=== PATIENT | female | born 1965 | race Caucasian/White ===

== ENCOUNTER → 2016-10-27 | Outpatient (CLI) | payer OTHER ==
--- NOTE | 2016-10-27 11:02 | RAD ---
DATE: 10/27/16 EXAM: Digital diagnostic bilateral mammograms and right breast ultrasound HISTORY: Palpable abnormality in the right upper outer breast COMPARISON: None available. Patient cannot recall the location of her previous mammograms. This study was interpreted with the benefit of Computerized Aided Detection (CAD). Mammogram: Technique: CC and MLO views of both breasts are obtained. Bilateral diagnostic mammogram Findings: The breast tissue density is [C, heterogeneously dense breast parenchyma ] . This reduces the sensitivity of mammograms. A marker has been placed in the right upper outer breast corresponding to the area of palpable concern. There is an area of asymmetric density beneath the skin marker. No suspicious clustered microcalcifications or architectural distortion seen. Scattered benign-appearing calcifications are seen in both breasts. Ultrasound to follow. Right Breast ultrasound discussion: Targeted sonographic evaluation of the right breast is performed and images are obtained. There is a ill-defined heterogeneously echogenic abnormality measuring 0.8 x 0.7 x 0.5 cm at 1030 - 11:00 position, 6 cm from the nipple. Some shadowing is demonstrated. There is vascularity at the periphery and within this area of abnormality. IMPRESSION: 1. Area of asymmetric density in the right upper outer breast corresponds to the area of palpable concern. 2. An ill-defined area of abnormality is seen on ultrasound at 10.30 - 11:00 position just beneath the area of palpable concern. The findings are suspicious. An ultrasound-guided biopsy is recommended. BI-RADS CATEGORY: 4 SUSPICIOUS ABNORMALITY-BIOPSY SHOULD BE CONSIDERED RECOMMENDED FOLLOW-UP: BIO BIOPSY RECOMMENDED PQRS compliance statement: Patient information was entered into a reminder system with a target due date for the next mammogram. Mammography is a sensitive method for finding small breast cancers, but it does not detect them all and is not a substitute for careful clinical examination. A negative mammogram does not negate a clinically suspicious finding and should not result in delay in biopsying a clinically suspicious abnormality. "Our facility is accredited by the [employer] Mammography [employer]." The results were discussed with the patient and subsequently with Corinna Long, the PA taking care of the patient after completion of the study.
== END | disposition home or self-care (01) ==
LOC: MAMMO 09:34
PROVIDERS: ATTEND Nurse Practitioner Family
DX: N63 Unspecified lump in breast (principal); R92.1 Mammographic calcification found on diagnostic imaging of breast
CPT/HCPCS: 76641; G0204; 77066

== ENCOUNTER → 2021-06-17 | Outpatient (CLI) | payer BC ==
[2021-06-14 15:41] VITALS: BP 127/56
[~2021-06-17] MED LIST: MEDR10TA3 PO; MULT-121 PO
--- NOTE | 2021-06-17 13:20 | EKG ---
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
[2021-06-17 13:39] LABS: BASO % 0 % (0-3); EOS # 0.1 x10^3/uL (0.0-0.7); EOS % 2 % (0-3); HEMATOCRIT 37.7 % (36.0-47.0); HEMOGLOBIN 12.4 g/dL (12.0-15.5); LYMPH # 1.5 x10^3/uL (1.0-4.8); LYMPH % 26 % (24-48); MEAN CORPUSCULAR HEMOGLOBIN 28 pg (25-35); MEAN CORPUSCULAR HGB CONC 33 g/dL (31-37); MEAN CORPUSCULAR VOLUME 86 fL (79-100); MONO # 0.5 x10^3/uL (0.0-1.1); MONO % 9 % (0-9); NEUT # 3.7 x10^3/uL (1.8-7.7); NEUT % 63 % (31-73); PLATELET COUNT 200 x10^3/uL (140-400); RED BLOOD COUNT 4.41 x10^6/uL (3.50-5.40); RED CELL DISTRIBUTION WIDTH 15.8 % (11.5-14.5); WHITE BLOOD COUNT 5.9 x10^3/uL (4.0-11.0)
[2021-06-17 13:44] LABS: BILIRUBIN,URINE NEGATIVE (NEG); CLARITY,URINE CLEAR; COLOR,URINE YELLOW; NITRITE,URINE NEGATIVE (NEG); PROTEIN,URINE NEGATIVE (NEG-TRACE); UROBILINOGEN,URINE 0.2 mg/dL (0.2 mg/dL)
[2021-06-17 13:51] LABS: ALBUMIN/GLOBULIN RATIO 1.4 (1.0-1.7); CALCIUM 8.4 mg/dL (8.5-10.1); CREATININE 0.7 mg/dL (0.6-1.0); GFR 86.2; POTASSIUM 3.9 mmol/L (3.5-5.1); TOTAL BILIRUBIN 0.3 mg/dL (0.2-1.0); TOTAL PROTEIN 6.8 g/dL (6.4-8.2)
[2021-06-17 13:51] LABS: BACTERIA,URINE FEW /HPF (0-FEW); RBC,URINE 0 /HPF (0-2); WBC,URINE OCC /HPF (0-4)
--- NOTE | 2021-06-17 14:46 | RAD ---
AP and Lateral Views of the Chest 06/17/2021 1:41 PM Indication: Reason: PRE-OP HYSTERECTOMY ON 06/22. Instructions: / History: Comparison: None Findings: There is no focal consolidation or infiltrate identified. Heart size is normal. There is no evidence of pneumothorax or pleural effusion. No acute osseous abnormalities are identified Impression: No evidence of acute cardiopulmonary process. Electronically signed by: Roberto Baltazar MD (06/17/2021 2:43 PM) [id number]
== END ==
LOC: MERGE 12:30 → UNMERGE 12:41 → SURGPAT 12:41
PROVIDERS: ATTEND Obstetrics & Gynecology
DX: Z01.818 Encounter for other preprocedural examination (principal)
CPT/HCPCS: 36415; 71046; 80053; 81001; 85025; 93005

== ENCOUNTER 2021-06-22 06:11 | Observation (INO) | payer BC, OTHER ==
[2021-06-17 13:13] VITALS: BP 138/68
[~2021-06-22] VITALS: Ht 161.3 cm; Wt 65.0 kg
[2021-06-22] VITALS (10 sets, daily range): BP systolic 97–138; BP diastolic 55–82
[~2021-06-22 06:11] MED LIST changes: +HYDROmorphone 2 MG/ML VIAL IVP PRN; +IV RINGERS,LACTATED 1000ML 1,000 ML IV SCH; +MORPHINE SULFATE 2 MG/ML INJ. IVP PRN; +PROCHLORPERAZINE 10 MG/2 ML VIAL. IVP PRN; +ceFAZolin SODIUM IV Push 1 GM VIAL. IVP PRN; +fentaNYL PF VIAL 100 MCG/2 ML VIAL IVP PRN
[2021-06-22] MEDS ORDERED: LIDOCAINE 2% PF 5 ML VIAL. ONE (06:46)
[2021-06-22] MEDS ORDERED: PROPOFOL 10 MG/ML (20ML) VIAL. IV ONE (06:46)
[2021-06-22] MEDS ORDERED: DEXAMETHASONE SOD PHOS 4 MG/ML VIAL ONE (06:47)
[2021-06-22] MEDS ORDERED: ROCURONIUM 50 MG/5 ML VIAL. ONE (06:47)
[2021-06-22] MEDS ORDERED: ONDANSETRON PF 4 MG/2 ML VIAL. ONE (06:47)
[2021-06-22] MEDS ORDERED: NEOSTIGMINE METHYLSULFATE 5 MG/5 ML SYRINGE. ONE (06:48)
[2021-06-22] MEDS ORDERED: GLYCOPYRROLATE 1 MG/5 ML VIAL. ONE (06:48)
[2021-06-22] MEDS ORDERED: BUPIVACAINE-EPI 0.25%-1:200000 MPF 30 ML VIAL. ONE (07:10)
[2021-06-22] MEDS ORDERED: ESTROGENS, CONJ VAGINAL CREAM 30GM TUBE. ONE (07:10)
[2021-06-22] MEDS ORDERED: INDIGOTINDISULFONATE SODIUM 40 MG/5 ML AMPUL. ONE (07:11)
[2021-06-22] MEDS ORDERED: MIDAZOLAM HCL/PF 2 MG/2 ML VIAL. ONE (07:12)
[2021-06-22] MEDS ORDERED: fentaNYL PF VIAL 100 MCG/2 ML VIAL ONE ×2 (07:12→09:58)
[2021-06-22] MEDS ORDERED: KETAMINE HCL IN NACL, ISO-OSM 50 MG/5 ML SYRINGE ONE (07:38)
[2021-06-22] MEDS ORDERED: KETOROLAC 30 MG/ML VIAL. ONE ×2 (08:17→08:36)
[2021-06-22] MEDS ORDERED: ePHEDrine PF IN SALINE 50 MG/10 ML SYRINGE. IV ONE (08:23)
[2021-06-22] MEDS ORDERED: SEVOFLURANE 61 TO 120 MINUTES. IH ONE (09:14)
--- NOTE | 2021-06-22 09:36 | PDOC ---
BRIEF OPERATIVE NOTE Date: Jun 22, 2021 Pre-Op Diagnosis complex endometrial hyperplasia and enlarged uterus Post-Op Diagnosis same Procedure Performed LAVH/bilateral salpingectomy Surgeon Dr. Gladys Huggins Clinic Office Manager FAY Pineda Anesthesiologist Dr. Cohen Anesthesia Type: General Blood Loss 100cc IV Fluid 1L fluid Urine Output 200cc clear via saucedo Specimens Obtained cervix, uterus and bilateral tubes Findings enlarged uterus, normal bilateral tubes and ovaries; left sided adhesive disease, mild endometriosis Complications none Operative Note [id number] GLADYS HUGGINS MD Jun 22, 2021 09:36
[2021-06-22] MEDS ORDERED: ZOLPIDEM 5 MG TABLET. PO PRN (09:45)
[2021-06-22] MEDS ORDERED: diphenhydrAMINE HCL 25 MG CAPSULE PO PRN (09:45)
[2021-06-22] MEDS ORDERED: NALOXONE 0.4 MG/ML VIAL. IV PRN (09:45)
[2021-06-22] MEDS ORDERED: SIMETHICONE 80 MG TAB.CHEW PO PRN (09:45)
[2021-06-22] MEDS ORDERED: MAG HYDROX/ALUMINUM HYD/SIMETH 30 ML ORAL.SUSP PO PRN (09:45)
[2021-06-22] MEDS ORDERED: HYDROcodone/APAP 5/325MG 1 TAB TABLET PO PRN (09:45)
[2021-06-22] MEDS ORDERED: oxyCODONE/APAP 5/325 1 TAB TABLET PO PRN (09:45)
[2021-06-22] MEDS ORDERED: ONDANSETRON PF 4 MG/2 ML VIAL. IV PRN (09:45)
[2021-06-22] MEDS ORDERED: diphenhydrAMINE 50 MG/ML VIAL IV PRN (09:45)
[2021-06-22] MEDS ORDERED: MORPHINE SULFATE 2 MG/ML INJ. IV PRN (09:45)
[2021-06-22] MEDS ORDERED: MAGNESIUM HYDROXIDE 2,400 MG/30 ML ORAL.SUSP. PO PRN (09:45)
[2021-06-22] MEDS ORDERED: LACTULOSE 20 GM/30 ML SOLUTION. PO PRN (09:45)
[2021-06-22] MEDS ORDERED: 0.9 % SODIUM CHLORIDE 10 ML DISP.SYRIN. IV PRN (09:45)
[2021-06-22] MEDS ORDERED: CALCIUM CARBONATE 500 MG TAB.CHEW PO PRN (09:45)
[2021-06-22] MEDS: fentaNYL PF VIAL 100 MCG/2 ML VIAL IVP PRN ×2 (10:02→10:11)
--- NOTE | 2021-06-22 10:48 | OP ---
DATE OF SURGERY: 06/22/2021 PREOPERATIVE DIAGNOSES: 1. Complex endometrial hyperplasia with menorrhagia. 2. Anemia, status post blood transfusion with an enlarged uterus. POSTOPERATIVE DIAGNOSES: 1. Complex endometrial hyperplasia with menorrhagia. 2. Anemia, status post blood transfusion with an enlarged uterus. PROCEDURES: Laparoscopic-assisted vaginal hysterectomy, bilateral salpingectomy. SURGEON: Gladys Huggins MD LITIGATION LEGAL ASSISTANT: FAY Underwood. ANESTHESIOLOGIST: Dr. Cohen. ANESTHESIA: General. BLOOD LOSS: 100 mL. URINE OUTPUT: 200 mL clear via Guerrero catheter. IV FLUIDS: One liter of crystalloid. SPECIMENS: Cervix, uterus, bilateral tubes. FINDINGS: An enlarged uterus, normal bilateral tubes and ovaries. She had left-sided bowel adhesive disease and mild endometriosis. COMPLICATIONS: None. DESCRIPTION OF PROCEDURE: This patient was taken to the operating room where general anesthesia was placed. The patient was [facility] The patient's abdomen and vagina were both prepped and draped in the normal sterile fashion and a Guerrero catheter had been inserted under sterile technique. Upon my arrival, a timeout was performed. Once everyone agreed on the patient, the site, the procedure, the antibiotics, the procedure was initiated. A bivalve speculum was placed in the patient's vagina. A single-tooth tenaculum was used to grasp the anterior lip of the cervix. 10 mL of 0.25% Marcaine with epinephrine was used to circumferentially inject around the cervix for both hemodissection and hemostatic purposes later. The Valtchev uterine manipulator was placed through the endocervical os, locked on the single tooth tenaculum and the bivalve speculum was then removed. Top gloves were discarded and changed. Attention was then turned to the abdomen where a small infraumbilical skin incision was made with a scalpel, a curved Deepthi was used to dissect through the subcuticular layer to the fascia. The 5 mm Visiport was used to directly into the abdominal cavity. Opening patient pressure was 3-4 mmHg. Carbon dioxide gas was used to appropriately insufflate the abdominal cavity to maintain a pressure of 15 mmHg. Overhead lights were dimmed. The patient was placed in Trendelenburg position. At this point, right and left lower quadrant ports were placed under direct visualization after transilluminating the abdominal wall finding an area clear of any vasculature, making a small incision and placing it in under direct visualization atraumatically. This was done on the right and left lower quadrant ports, 4-5 mL of air was placed in the trocar cuffs on both of these. The camera was moved laterally to look at the umbilical port. Once it was found to be clear and in a good spot, it was also insufflated with 4-5 mL of air in the trocar cuff. At this point, left tube and ovary were elevated. There were bowel adhesions over the ureter, but we were just doing a salpingectomy, not going low, it also did not matter. I did not take any of the bowel adhesions down. They were out of our way, so we did a salpingectomy on the left, going above the ovary below the tube per patient request, going over to the uterus, then crossing the left uteroovarian pedicle with the LigaSure, cauterizing and cutting in the left round ligament and then going down and starting that bladder flap sharply elevating the bladder flap while pushing the uterus cephalad towards the head of the bed using the [place] to lift up on the bladder flap and the monopolar hook to cut across and pull down gently. Then, on the right side, elevating the right tube and ovary, we found the ureter coursing below the ovary again staying above the ovary below the tube, leaving the ovary per patient request, doing a salpingectomy, crossing the right uteroovarian pedicle and the right round ligament going down and meeting that bladder flap anteriorly. The uterine vessels were obtained on both sides going down and hugging the cervix and uterus, on the left side crossing contralaterally and staying vertical and getting down to the level of the uterosacral and then getting the uterines on the right side as well and hugging posteriorly and staying right on that cervix, going through the cardinal and broad ligaments. Once this was done and the uterus was completely blanched, there were no adhesions posterior to the uterus or in the cul-de-sac. The bladder was down, the uterine vessels had been obtained. It was decided to go vaginally. Overhead lights were turned off. The patient was taken out of some of the Trendelenburg. Legs were elevated and the single tooth and Valtchev were removed. A weighted speculum was placed in the patient's vagina. Thyroid Ariana clamps were placed on the anterior and posterior lips of the cervix respectively. A scalpel was used to make a circumferential incision in the cervix. Open Ray-Adolfo 4 x 4 was used to gently push up the anterior bladder peritoneum and the bladder flap was digitally and bluntly created. The 4 x 4 was removed and the curved [place] was placed in the anterior cul-de-sac. The cervix was elevated and the posterior cul-de-sac was sharply entered with curved Hunter scissors. A #0 Vicryl stitch was used to secure the posterior peritoneum here to the vaginal cuff, it was tagged with a curved Deepthi clamp and the needle was cut and passed off. The short weighted vaginal speculum was removed and replaced with the long weighted Hailey speculum in the posterior cul-de-sac. Curved Brenden clamps x 2 were placed on the patient's left uterosacral ligament where they were doubly clamped with curved Heaneys, cut with curved Hunter scissors and suture ligated x 2 with 0 Vicryl. Second one was taken through the vaginal cuff securing uterosacral ligament to the vaginal cuff, tagging it with a straight Deepthi clamp and cutting and passing the needle off. This was done exactly the same on the right side, double clamping the uterosacrals with curved Brenden's, cutting with curved Hunter scissors, suture ligating x 2 with 0 Vicryl, taking the second one through the vaginal cuff, tagging it with a straight Deepthi clamp and cutting and passing the needle off. The remaining pedicles on both sides were delineated with the right angle Mixter. Vaginal LigaSure was used to cauterize and cut the remaining pedicle. The uterus was too large to be delivered in total, so a tenaculum was placed posteriorly trying to elevate it and then the scalpel was used to cut off some segments and take out the uterus. Once it was out, a sponge stick was used to examine the pedicles. A long Allis was used to grasp the anterior bladder peritoneum. The long weighted Hailey speculum was removed and replaced with the short weighted vaginal speculum. 2-0 Vicryl was taken through the anterior bladder peritoneum, left uterosacral ligament, posterior peritoneum and right uterosacral ligament, thus closing the peritoneum in a pursestring like fashion. The right and left uterosacral tags were clipped. A full length 2-0 Vicryl was used to close the cuff in an anterior to posterior running locked fashion and tied to that posterior cuff tag. Sponge stick was used to examine the pedicles or the cuff and there was no active bleeding and it looked good. All sponge, lap and needle counts had been correct x 2 by OR personnel below and attention was now turned above. The gas was reinsufflated. Overhead lights were dimmed. Trendelenburg position was resumed and copious irrigation revealed hemostasis. Tisseel was placed over the pedicles. The gas was taken out of all three trocar cuff sites. Trocars were removed under direct visualization. They were hemostatic. Gas was released from the infraumbilical port and then it was removed. All 3 port sites were closed with 4-0 nylon and injected with local at the end. The patient was then awakened from anesthesia and brought to recovery room in stable condition. LORRAINE DR: Irvin TID: [id number]
--- NOTE | 2021-06-22 16:30 | NUR ---
Call to Dr Huggins Informed patient unable to void. Order to do bladder scan if more than 400 may straight cath if less continue to try to fill bladder with po fluids
--- NOTE | 2021-06-22 17:00 | NUR ---
bladder scan showed 260.
--- NOTE | 2021-06-22 17:45 | NUR ---
Call to Dr Huggins informed Patient went to [facility] and they were not there. Patient voided 50cc. Dr will send them in scripts
== END 2021-06-22 19:00 | disposition home or self-care (01) ==
LOC: SURG 06:11 → UNMERGE 07:30 → MERGE 07:30 → 3 NORTH 09:40
PROVIDERS: ADMIT Obstetrics & Gynecology; ATTEND Obstetrics & Gynecology
DX: N85.01 Benign endometrial hyperplasia (principal); N92.0 Excessive and frequent menstruation with regular cycle; D64.9 Anemia, unspecified; N85.2 Hypertrophy of uterus; K66.0 Peritoneal adhesions (postprocedural) (postinfection)
CPT/HCPCS: 36415; 58552; 86850; 86900; 86901; A4314; A4364; A4930; A6219; G0378; J0690; J1100; J1885; J2250; J2405; J2704; J2710; J3010; J3490; 88309; 88341; 88342; A4351; A4657; G0379